=== PATIENT | female | born 1985 | race Caucasian/White ===

== ENCOUNTER 2017-05-10 10:59 | Emergency (ER) | payer OTHER ==
[2017-05-10 12:09] VITALS: BP 137/82
--- NOTE | 2017-05-10 12:58 | UC ---
Throat Pain/Nasal Chris HPI - HPI Summary HPI Summary: Pt presents with c/o nasal congestion and sinus pressure, and generalized malaise - History of Current Complaint Chief Complaint: UCRespiratory Stated Complaint: COLD SYMPTOMS Time Seen by Provider: 05/10/17 12:50 Hx Obtained From: Patient Hx Last Menstrual Period: 04/30/17 ?: No Onset/Duration: Gradual Onset Severity: Moderate Associated Signs & Symptoms: Positive: Sinus Discomfort Related History: Seasonal Allergies - Epiglottits Risk Factors Epiglottis Risk Factors: Negative - Allergies/Home Medications Allergies/Adverse Reactions: Allergies Allergy/AdvReac Type Severity Reaction Status Date / Time Bee Venom Allergy Severe LOCALIZED Verified 05/10/17 12:09 SWELLING Ethanol Allergy Severe "THROAT Verified 05/10/17 12:09 [From Lysol Disinfectant] CLOSES" Phenylphenol Allergy Severe "THROAT Verified 05/10/17 12:09 [From Lysol Disinfectant] CLOSES" PMH/Surg Hx/FS Hx/Imm Hx Previously Healthy: Yes - Surgical History Surgical History: Yes Surgery Procedure, Year, and Place: BOWEL OBSTRUCTION- COLECTOMY - Family History Known Family History: Positive: Hypertension - Social History Occupation: Works From/At Home Lives: With Family Alcohol Use: None Substance Use Type: None Smoking Status (MU): Never Smoked Tobacco Have You Smoked in the Last Year: No Review of Systems Constitutional: Negative Skin: Negative Eyes: Negative ENT: Sinus Congestion, Sinus Pain/Tenderness Respiratory: Negative Cardiovascular: Negative Gastrointestinal: Negative Genitourinary: Negative Motor: Negative Neurovascular: Negative Musculoskeletal: Negative Neurological: Negative Psychological: Negative Is Patient Immunocompromised?: No All Other Systems Reviewed And Are Negative: Yes Physical Exam Triage Information Reviewed: Yes Appearance: Ill-Appearing Vital Signs: Initial Vital Signs Temp 98.4 F 05/10/17 12:03 Pulse 80 05/10/17 12:03 Resp 16 05/10/17 12:03 BP 137/82 05/10/17 12:03 Pulse Ox 100 05/10/17 12:03 Vital Signs Reviewed: Yes Eye Exam: Normal ENT Exam: Other ENT: Positive: Nasal congestion, Other: - frontal an dmaxillary sinus tenderness Neck exam: Normal Respiratory Exam: Normal Cardiovascular Exam: Normal Musculoskeletal Exam: Normal Neurological Exam: Normal Psychological Exam: Normal Skin Exam: Normal Throat Pain/Nasal Course/Dx - Differential Dx/Diagnosis Differential Diagnosis/HQI/PQRI: Sinusitis, URI Provider Diagnoses: sinusitis Discharge - Discharge Plan Condition: Stable Disposition: HOME Prescriptions: Amoxicillin PO (*) [Amoxicillin 875 MG (*)] 875 mg PO Q12H #20 tab Cetirizine* [ZyrTEC 10 MG TAB*] 10 mg PO DAILY #10 tab Patient Education Materials: Sinusitis (ED), Allergies (ED) Referrals: Leo Atkinson [Primary Care Provider] - If Needed Additional Instructions: Please follow up with your PCP or return to clinic as needed
== END 2017-05-10 13:05 | disposition home or self-care (01) ==
LOC: UCCORT 10:59
DX: J32.9 Chronic sinusitis, unspecified (principal)
CPT/HCPCS: 99212; G0463

== ENCOUNTER 2017-07-16 08:55 | Emergency (ER) | payer OTHER ==
[2017-07-16 09:22] VITALS: BP 120/71
--- NOTE | 2017-07-16 09:22 | UC ---
Throat Pain/Nasal Chris HPI - HPI Summary HPI Summary: 32 female presents to with complaints of "thinking she has a sinus infection " that began on 07/10. Patient states she gets them at least once a year. Also having headaches from all the pressure. Denies known fever/chills. Has trouble breathing through nose due to it being congested. Pressure on both sides of maxillary sinus. Has taken tylenol sinus without relief. Is unable to use nasal sprays due to causing a headache. No other complaints. No other PMHx. No other medication. - History of Current Complaint Stated Complaint: SINUS Time Seen by Provider: 07/16/17 09:20 Hx Obtained From: Patient Hx Last Menstrual Period: 04/30/17 Onset/Duration: Sudden Onset, Lasting Days, Still Present, Worse Since Pain Intensity: 4 Pain Scale Used: 0-10 Numeric Cough: None Associated Signs & Symptoms: Positive: Sinus Discomfort, Nasal Discharge - Allergies/Home Medications Allergies/Adverse Reactions: Allergies Allergy/AdvReac Type Severity Reaction Status Date / Time Bee Venom Allergy Severe LOCALIZED Verified 07/16/17 09:22 SWELLING Ethanol Allergy Severe "THROAT Verified 07/16/17 09:22 [From Lysol Disinfectant] CLOSES" Phenylphenol Allergy Severe "THROAT Verified 07/16/17 09:22 [From Lysol Disinfectant] CLOSES" Home Medications: Home Medications diPHENhydraMINE PO* [Benadryl PO 25 MG TAB*] 75 mg PO Q6H PRN 07/16/17 [History Confirmed 07/16/17] PMH/Surg Hx/FS Hx/Imm Hx - Additional Past Medical History Additional PMH: Denies DM HTN and asthma - Surgical History Surgical History: Yes Surgery Procedure, Year, and Place: BOWEL OBSTRUCTION- COLECTOMY - Family History Known Family History: Positive: Hypertension - Social History Alcohol Use: None Substance Use Type: None Smoking Status (MU): Never Smoked Tobacco Have You Smoked in the Last Year: No - Immunization History Vaccination Up to Date: Yes Review of Systems Constitutional: Negative Eyes: Negative ENT: Nasal Discharge, Sinus Congestion, Sinus Pain/Tenderness Respiratory: Negative Cardiovascular: Negative Neurological: Headache All Other Systems Reviewed And Are Negative: Yes Physical Exam Triage Information Reviewed: Yes Appearance: Well-Appearing, No Pain Distress, Well-Nourished Vital Signs: temp 97.9F pulse 74 bp 120/71 resp 16 o2 100 Vital Signs Reviewed: Yes Eyes: Positive: Conjunctiva Clear ENT: Positive: Pharynx normal, Nasal congestion, TMs normal, Sinus tenderness, Uvula midline. Negative: Tonsillar swelling, Tonsillar exudate Dental: Positive: Percussion Tenderness @ - maxillary b/l, Cervical Lymphadenopathy Neck: Positive: Supple, Nontender Respiratory: Positive: Chest non-tender, Lungs clear, Normal breath sounds, No respiratory distress, No accessory muscle use Cardiovascular: Positive: RRR, No Murmur, Pulses Normal Musculoskeletal: Positive: Strength Intact Neurological: Positive: Alert Skin Exam: Normal Throat Pain/Nasal Course/Dx - Course Course Of Treatment: appears to be suffering from acute sinusitis, educated patient that this may be viral. patient unable to use nasal sprays. failed outpatient therapy. will treat with amoxicillin, patient preference. aware of worsening signs and symptoms to watch out for. follow up with pcp. increase fluid intake and rest. - Differential Dx/Diagnosis Differential Diagnosis/HQI/PQRI: Sinusitis, Tonsillitis, URI, Other - rhinosinusitis Provider Diagnoses: sinusitis Discharge - Discharge Plan Condition: Good Disposition: HOME Prescriptions: Amoxicillin PO (*) [Amoxicillin 500 MG CAP*] 500 mg PO Q12H #20 cap Patient Education Materials: Sinusitis (ED), Warm Compress or Soak (ED) Referrals: [facility] [Outside] Additional Instructions: Take prescribed medication as directed. Hot showers and warm compresses. Humidified air if able. Increase fluid intake. Follow up with PCP. Any new or worsening symptoms please seek medical attention.
== END 2017-07-16 09:45 | disposition home or self-care (01) ==
LOC: UCCORT 08:55
DX: J32.9 Chronic sinusitis, unspecified (principal)
CPT/HCPCS: 99212; G0463

== ENCOUNTER 2017-12-31 12:30 | Emergency (ER) | payer OTHER ==
--- NOTE | 2017-12-31 13:08 | UC ---
Abdominal Pain Female HPI - HPI Summary HPI Summary: lower abdomen pain watery stool, vomiting for the past 24 hours,,,has tried clear liquids--past history of bowel obstruction requiring surgery at [facility]---has had cough, as well-no fevers sinus congestion, ear aches , sore throat, sputum or fever - History of Current Complaint Hx Obtained From: Patient Hx Last Menstrual Period: 04/30/17 ?: No Onset/Duration: Sudden Onset, Lasting Days - 1, Still Present Timing: Constant Severity Initially: Moderate Severity Currently: Moderate Location: Discrete At: RLQ, Discrete At: LLQ Radiates: No Character: Cramping Aggravating Factor(s): Food Alleviating Factor(s): Nothing Associated Signs and Symptoms: Positive: Cough, Decreased Appetite, Nausea, Vomiting, Diarrhea <Sabi Malik - Last Filed: 12/31/17 13:25> <Alvin Dee - Last Filed: 12/31/17 14:21> - History of Current Complaint Chief Complaint: UCAbdominalPain Stated Complaint: COUGH/CONGESTION Time Seen by Provider: 12/31/17 13:00 Allergies/Adverse Reactions: Allergies Allergy/AdvReac Type Severity Reaction Status Date / Time MS Bee Venom [Bee Venom] Allergy Severe LOCALIZED Verified 07/16/17 09:22 SWELLING MS Ethanol Allergy Severe "THROAT Verified 07/16/17 09:22 [From Lysol Disinfectant] CLOSES" MS Phenylphenol Allergy Severe "THROAT Verified 07/16/17 09:22 [From Lysol Disinfectant] CLOSES" PMH/Surg Hx/FS Hx/Imm Hx Previously Healthy: No - Surgical History Surgical History: Yes Surgery Procedure, Year, and Place: BOWEL OBSTRUCTION- COLECTOMY - Family History Known Family History: Positive: Hypertension - Social History Occupation: Works From/At Home Lives: With Family Alcohol Use: None Substance Use Type: None Smoking Status (MU): Never Smoked Tobacco Have You Smoked in the Last Year: No - Immunization History Vaccination Up to Date: Yes <Sabi Malik - Last Filed: 12/31/17 13:25> Review of Systems Constitutional: Negative Skin: Negative Eyes: Negative ENT: Negative Respiratory: Cough Cardiovascular: Negative Gastrointestinal: Abdominal Pain, Vomiting, Diarrhea, Nausea Genitourinary: Negative Motor: Negative Neurovascular: Negative Musculoskeletal: Negative Neurological: Negative Psychological: Negative Is Patient Immunocompromised?: No All Other Systems Reviewed And Are Negative: Yes <Sabi Malik - Last Filed: 12/31/17 13:25> Physical Exam Triage Information Reviewed: Yes Appearance: Well-Nourished, Ill-Appearing - mild, Pain Distress - mild Vital Signs Reviewed: Yes Eye Exam: Normal Eyes: Positive: Conjunctiva Clear ENT Exam: Normal ENT: Positive: Normal ENT inspection, Hearing grossly normal, Pharynx normal, TMs normal. Negative: Nasal congestion, Trismus, Muffled voice, Hoarse voice, Dental tenderness, Sinus tenderness Dental Exam: Normal Neck exam: Normal Neck: Positive: Supple, Nontender Respiratory Exam: Normal Respiratory: Positive: Chest non-tender, Lungs clear, Normal breath sounds, No respiratory distress, No accessory muscle use Cardiovascular Exam: Normal Cardiovascular: Positive: RRR, No Murmur, Pulses Normal, Brisk Capillary Refill Abdominal Exam: Other Abdomen Description: Positive: No Organomegaly, Soft, Other: - tender right and left lower abdomen. Negative: CVA Tenderness (R), CVA Tenderness (L), Distended , McBurney's Point Tenderness Bowel Sounds: Positive: Hyperactive Musculoskeletal Exam: Normal Musculoskeletal: Positive: Strength Intact, ROM Intact, No Edema Neurological Exam: Normal Neurological: Positive: Alert, Muscle Tone Normal Psychological Exam: Normal Psychological: Positive: Normal Response To Family Skin Exam: Normal <Sabi Malik - Last Filed: 12/31/17 13:25> Vital Signs: Initial Vital Signs Temp 99.6 F 12/31/17 13:09 Pulse 85 12/31/17 13:09 Resp 16 12/31/17 13:09 BP 125/83 12/31/17 13:09 Pulse Ox 100 12/31/17 13:09 <Alvin Dee - Last Filed: 12/31/17 14:21> Abd Pain Female Course/Dx - Course Course Of Treatment: keep patient NPO, being discharged from Urgent care to go to Emergency department for further evaluation of abd pain - Differential Dx/Diagnosis Provider Diagnoses: Abdomen pain acute nausea, vomiting and diarrhea <Sabi Malik - Last Filed: 12/31/17 13:25> Discharge - Sign-Out/Discharge Documenting (check all that apply): Discharge/Admit/Transfer - Billing Disposition and Condition Condition: STABLE Disposition: Home <Sabi Malik - Last Filed: 12/31/17 13:25> - Billing Disposition and Condition Condition: STABLE Disposition: Home <Alvin Dee - Last Filed: 12/31/17 14:21> - Discharge Plan Condition: Stable Disposition: HOME Patient Education Materials: Dehydration (ED), Acute Diarrhea (ED) Referrals: TAYLOR Vo [Medical Doctor] - No Primary Care Phys,NOPCP [Primary Care Provider] - Additional Instructions: Please go directly to the emergency department at [facility] (your preferred ED) for further assessment of your abdomen pain and diarrhea Per institutional requirements, I have reviewed the chart, however, I was not consulted specifically or made aware of this patient by the above midlevel provider. I did not personally evaluate, interact with , or disposition this patient.
[2017-12-31 13:14] VITALS: BP 125/83
== END 2017-12-31 13:15 | disposition home or self-care (01) ==
LOC: UCCORT 12:30
DX: R11.2 Nausea with vomiting, unspecified (principal); R19.7 Diarrhea, unspecified; Z91.048 Other nonmedicinal substance allergy status
CPT/HCPCS: 99212; G0463